=== PATIENT | male | born 1995 | race Caucasian/White ===

== ENCOUNTER 2020-07-21 13:29 | Outpatient (CLI) | payer MEDICAID ==
--- NOTE | 2020-07-21 14:29 | XRAY Report ---
PROCEDURE: Knee 2 View RT INDICATIONS: RT KNEE JOINT PAIN TECHNIQUE: 2 views of the right knee(s) were acquired. COMPARISON: None. FINDINGS: Bones: No fractures or dislocations. No suspicious bony lesions. Soft tissues: No joint effusion. No suspicious soft tissue calcifications. IMPRESSION: No acute fracture. No osseous lesion. If symptoms and/or clinical suspicion for patholog y continue, further assessment with repeat plain films, or advanced imaging (e.g., CT, MRI, or bone s can) is recommended for further assessment. Reviewed by: Dragan Kirby MD on 07/21/2020 2:28 PM PDT Approved by: Dragan Kirby MD on 07/21/2020 2:28 PM PDT Station ID: [id number]
== END 2020-07-21 13:30 | disposition home or self-care (01) ==
LOC: DI 13:29
PROVIDERS: ATTEND Family Medicine
DX: M25.561 Pain in right knee (principal)

== ENCOUNTER 2020-07-28 21:18 | Emergency (ER) | payer MEDICAID ==
[2020-07-28 21:25] VITALS: BP 131/77
[2020-07-28] MEDS ORDERED: predniSONE 20 MG TABLET PO STA (21:45)
--- NOTE | 2020-07-28 21:49 | ED Physician Documentation ---
History of Present Illness - Stated complaint Stated Complaint: RT KNEE PX - Chief complaint Chief Complaint: Ext Problem - Additonal information Additional information: 25-year-old male presents to the emergency department for acute on chronic right knee pain. He reports that he has had this pain for more than 15 years. It intermittently flares. He previously lived in [place] and states that the doctors in the past of told him there was nothing wrong with his knee. This gentleman did see Dr. Healy earlier this week and had a knee x-ray completed that did not show any acute findings. Yesterday he rode his bicycle for many miles and today he finds that the pain is unbearable. He had no falls or trauma, he has no fevers. He does endorse mild swelling of the knee that radiates up the thigh. In the past he has had prepatellar bursitis that has been drained but that does not appear to be the problem today. Review of Systems Constitutional: reports: Reviewed and negative Eyes: reports: Reviewed and negative Ears: reports: Reviewed and negative Throat: reports: Reviewed and negative Cardiac: reports: Reviewed and negative GI: reports: Reviewed and negative : reports: Reviewed and negative Skin: reports: Reviewed and negative Musculoskeletal: reports: Joint pain (Right knee) Neurologic: reports: Reviewed and negative Psychiatric: reports: Reviewed and negative PD PAST MEDICAL HISTORY - Past Medical History Respiratory: Asthma Endocrine/Autoimmune: Other - Past Surgical History Past Surgical History: Yes - Present Medications Home Medications: Ambulatory Orders Medication Instructions Recorded Confirmed ARIPiprazole [Abilify] 1 tab PO DAILY 07/28/20 07/28/20 predniSONE [Prednisone] 40 mg PO DAILY #6 tablet 07/28/20 - Allergies Allergies/Adverse Reactions: Allergies Allergy/AdvReac Type Severity Reaction Status Date / Time aspirin Allergy Anaphylaxis Verified 07/28/20 21:25 NSAIDS (Non-Steroidal Allergy Anaphylaxis Verified 07/28/20 21:25 Anti-Inflamma - Social History Does the pt smoke?: No Smoking Status: Never smoker Does the pt drink ETOH?: Yes Does the pt have substance abuse?: No - Immunizations Immunizations are current?: Yes - POLST Patient has POLST: No PD ED PE EXPANDED - General General: Alert, No acute distress - Extremities Extremities: Right knee (Mild effusion palpable. Normal flexion and extension. No laxity. No erythema. No micromotion tenderness. Mildly antalgic gait) Results - Vitals Vitals: Vital Signs - 24 hr 07/28/20 21:22 Temperature 37.2 C Heart Rate 101 H Respiratory 16 Rate Blood Pressure 131/77 H O2 Saturation 99 Oxygen O2 Source Room air PD MEDICAL DECISION MAKING - ED course Complexity details: reviewed results, re-evaluated patient, d/w patient, d/w family ED course: 25-year-old male presents to the emergency department for evaluation of acute on chronic knee pain that was worsened when he recently rode his bike for a few miles. He had establish care with his primary care provider about 1 week ago and obtained a knee x-ray that was unremarkable. Given the chronicity of his symptoms I have encouraged him to follow-up with physical therapy and in the long-term likely an MRI of the knee. However today on exam he has no laxity of the joint significant swelling or erythema. He has a mildly antalgic gait. This gentleman was given an injection of Dilaudid for pain control. Pt will be given 4 days of prednisone for inflammation and pain control. first dose given today in the ED. Unfortunately he does have a history of anaphylaxis to NSAID medication. He was given crutches for comfort and encouraged to use the [place] wrap for support. Departure - Departure Disposition: 01 Home, Self Care Clinical Impression: Right knee pain Qualifiers: Chronicity: chronic Qualified Code(s): M25.561 - Pain in right knee; G89.29 - Other chronic pain Condition: Stable Record reviewed to determine appropriate education?: Yes Prescriptions: predniSONE [Prednisone] 40 mg PO DAILY #6 tablet Comments: Please continue to follow up with Dr. Healy. In the residential you will benefit from physical therapy and possibly MRI imaging. I have prescribed some prednisone to help with acute pain today. Your first dose was given tonight in the ED. Please begin taking tomorrow evening for the next 3 days. use the crutches when out of bed for the next 3-4 days to rest the knee and wear the compression sleeve when out of bed. IF you develop fevers, have redness or severe swelling of the knee, please return to the ED.
[2020-07-28] MEDS ORDERED: HYDROmorphone 1 MG/ML CARPUJECT IM STA (21:54)
== END 2020-07-28 22:12 | disposition home or self-care (01) ==
LOC: ED 21:18
DX: M25.561 Pain in right knee (principal); G89.29 Other chronic pain
CPT/HCPCS: 96372; 99283; J1170; J7512

== ENCOUNTER 2020-08-31 15:19 | Emergency (ER) | payer MEDICAID ==
[2020-08-31 16:00] LABS: BASOPHILS # (AUTO) 0.1 10^3/uL (0.0-0.1); BASOPHILS % (AUTO) 0.4 %; EOSINOPHILS # (AUTO) 0.2 10^3/uL (0.0-0.7); EOSINOPHILS % (AUTO) 1.3 %; HGB - HEMOGLOBIN 16.5 g/dL (14.0-18.0); LYMPHOCYTES # (AUTO) 2.1 10^3/uL (1.5-3.5); LYMPHOCYTES % (AUTO) 18.3 %; MEAN CORPUSCULAR HEMOGLOBIN 28.8 pg (27.0-31.0); MEAN CORPUSCULAR HGB CONC 34.1 g/dL (32.0-36.0); MEAN CORPUSCULAR VOLUME 84.6 fL (80.0-94.0); MEAN PLATELET VOLUME 11.4 fL (7.4-11.4); MONOCYTES # (AUTO) 1.2 10^3/uL (0.0-1.0); MONOCYTES % (AUTO) 10.1 %; NEUTROPHILS # (AUTO) 8.1 10^3/uL (1.5-6.6); NEUTROPHILS % (AUTO) 69.6 %; PLT - PLATELET COUNT 261 10^3/uL (130-450); RED BLOOD COUNT 5.72 10^6/uL (4.70-6.10); RED CELL DISTRIBUTION WIDTH 13.1 % (12.0-15.0); WHITE BLOOD COUNT 11.7 x10^3/uL (4.8-10.8)
[2020-08-31 16:12] LABS: BILIRUBIN,URINE NEGATIVE (NEGATIVE); GLUCOSE, URINE (UA) NEGATIVE (NEGATIVE); KETONES,URINE (UA) NEGATIVE (NEGATIVE); LEUKOCYTE ESTERASE, URINE NEGATIVE (NEGATIVE); NITRITE,URINE NEGATIVE (NEGATIVE); OCCULT BLOOD,URINE NEGATIVE (NEGATIVE); PH,URINE 7.5 PH (5.0-7.5); PROTEIN,URINE NEGATIVE (NEGATIVE); UROBILINOGEN,URINE 0.2 (NORMAL) E.U./dL (NORMAL)
[2020-08-31 16:13] LABS: ALBUMIN 5.1 g/dL (3.2-5.5); ALBUMIN/GLOBULIN RATIO 1.3 (1.0-2.2); BILIRUBIN,TOTAL 0.6 mg/dL (0.2-1.0); CALCIUM 11.3 mg/dL (8.5-10.3); CREATININE 0.8 mg/dL (0.6-1.2); TOTAL PROTEIN 8.9 g/dL (6.7-8.2)
[2020-08-31 16:17] LABS: CLARITY,URINE CLEAR (CLEAR)
[2020-08-31] MEDS ORDERED: HYDROmorphone 1 MG/ML CARPUJECT IVP STA (16:26)
[2020-08-31] MEDS ORDERED: SODIUM CHLORIDE 0.9% 1,000 ML IV STA (16:26)
[2020-08-31] MEDS ORDERED: ONDANSETRON 4 MG/2 ML VIAL IVP STA (16:26)
--- NOTE | 2020-08-31 16:28 | ED Physician Documentation ---
History of Present Illness - Stated complaint Stated Complaint: ABD PX - Chief complaint Chief Complaint: Abd Pain - History obtained from History obtained from: Patient - History of Present Illness Timing: How many days ago (3) - Additonal information Additional information: 25-year-old male presents to the emergency department with 3 days of epigastric abdominal pain that radiates to his lower abdomen. Patient reports the pain as sharp and constant tearing he denies any fevers or vomiting but reports that he did have black stools this morning. He denies any history of NSAID use or tobacco use. Denies daily alcohol. Denies any pertinent past surgical history. Review of Systems Constitutional: reports: Reviewed and negative Ears: reports: Reviewed and negative Nose: reports: Reviewed and negative Throat: reports: Reviewed and negative Cardiac: reports: Reviewed and negative Respiratory: reports: Reviewed and negative GI: reports: Abdominal Pain, Bloody / black stool. denies: Nausea, Vomiting, Constipation, Diarrhea, Hematemesis : denies: Dysuria, Frequency, Hesitancy Skin: reports: Reviewed and negative Musculoskeletal: reports: Back pain (chronic) Neurologic: reports: Reviewed and negative Psychiatric: reports: Reviewed and negative PD PAST MEDICAL HISTORY - Past Medical History Past Medical History: Yes Cardiovascular: None Respiratory: Asthma Neuro: None Endocrine/Autoimmune: Other GI: None : None HEENT: None Psych: Depression, Anxiety Musculoskeletal: None Derm: None - Past Surgical History Past Surgical History: No - Present Medications Home Medications: Ambulatory Orders Medication Instructions Recorded Confirmed ARIPiprazole [Abilify] 1 tab PO DAILY 07/28/20 07/28/20 predniSONE [Prednisone] 40 mg PO DAILY #6 tablet 07/28/20 Esomeprazole Magnesium [Nexium] 20 mg PO BID #60 capsule. 08/31/20 Hydrocodone/Acetaminophen [[place] 1 each PO BID PRN #7 tablet 08/31/20 5-325 Tablet] - Allergies Allergies/Adverse Reactions: Allergies Allergy/AdvReac Type Severity Reaction Status Date / Time aspirin Allergy Anaphylaxis Verified 08/31/20 15:37 NSAIDS (Non-Steroidal Allergy Anaphylaxis Verified 08/31/20 15:37 Anti-Inflamma - Social History Does the pt smoke?: No Smoking Status: Never smoker Does the pt drink ETOH?: Yes Does the pt have substance abuse?: No - Immunizations Immunizations are current?: Yes - POLST Patient has POLST: No PD ED PE EXPANDED - General General: Alert, Well developed/nourished, In Pain - Neck Neck: Supple w/out meningeal sx, No tenderness - Cardiac Cardiac: Regular Rate, Regular Rhythm, Radial strong equal, Cap refill < 2 sec - Respiratory Respiratory: Clear to ausultation [place]. No: Distress, Labored - Abdomen Abdomen: Normal Bowel sounds, Tender to palpation, Epigastric (Epigastric tenderness to palpation without guarding or rebound. No Jara's or McBurney's elicited. Some tenderness elicited on the and suprapubic area). No: Rebound, Guarding - Derm Derm: Normal color, Warm and dry. No: Rash - Extremities Extremities: Normal - Neuro Neuro: Alert and Oriented X 3, CNII-XII intact - GCS Eye Opening: Spontaneous Motor: Obeys Commands Verbal: Oriented Total: 15 Results - Vitals Vitals: Vital Signs - 24 hr 08/31/20 15:34 Temperature 37.3 C Heart Rate 77 Respiratory 20 Rate Blood Pressure 151/81 H O2 Saturation 97 Oxygen O2 Source Room air - Labs Labs: Laboratory Tests 08/31/20 08/31/20 08/31/20 15:50 15:50 15:50 WBC 11.7 H RBC 5.72 Hgb 16.5 Hct 48.4 MCV 84.6 MCH 28.8 MCHC 34.1 RDW 13.1 Plt Count 261 MPV 11.4 Neut # (Auto) 8.1 H Lymph # (Auto) 2.1 [place] # (Auto) 1.2 H Eos # (Auto) 0.2 Baso # (Auto) 0.1 Absolute Nucleated RBC 0.00 Nucleated RBC % 0.0 Sodium 139 Potassium 3.8 Chloride 97 L Carbon Dioxide 28 Anion Gap 14.0 H BUN 15 Creatinine 0.8 Estimated GFR (MDRD) 116 Glucose 109 H Calcium 11.3 H Total Bilirubin 0.6 AST 24 ALT 37 Alkaline Phosphatase 79 Total Protein 8.9 H Albumin 5.1 Globulin 3.9 Albumin/Globulin Ratio 1.3 Lipase 29 Urine Color YELLOW Urine Clarity CLEAR Urine pH 7.5 Ur Specific [place] 1.025 Urine Protein NEGATIVE Urine Glucose (UA) NEGATIVE Urine Ketones NEGATIVE Urine Occult Blood NEGATIVE Urine Nitrite NEGATIVE Urine Bilirubin NEGATIVE Urine Urobilinogen 0.2 (NORMAL) Ur Leukocyte Esterase NEGATIVE Ur Microscopic Review NOT INDICATED Urine Culture Comments NOT INDICATED - Rads (name of study) CT abd Radiology: Final report received (No evidence of acute abdominal process. Negative CT abdomen and pelvis with contrast) PD MEDICAL DECISION MAKING - ED course Complexity details: reviewed results, re-evaluated patient, d/w patient ED course: 25-year-old male presents to the emergency department with 3 days of acute epigastric abdominal pain that he feels radiates to his lower abdomen. He did report one episode of black stool this a.m. On exam he has no anemia or significant leukocytosis. He has no transaminase elevation and his kidney function is preserved. CT of the abdomen did not reveal any acute abdominal emergency or surgical pathology. My suspicion for this gentleman is that he likely is developing gastritis or peptic ulcer disease. In point he denies NSAID overuse or alcohol abuse. I will start this gentleman on a twice daily prescription of PPI. I have advised close follow-up with his primary care provider. He may benefit from referral to a car restorer to have possible EGD performed. Patient is to return to the emergency department if he has worsening bloody stools or persistent melena. However on my exam he appears very well. Departure - Departure Disposition: Home, Self Care Clinical Impression: Epigastric pain Condition: Stable Record reviewed to determine appropriate education?: Yes Instructions: ED Gastritis, ED Epigastric Pain [facility] Follow-Up: Delroy Solis MD [Primary Care Provider] - Prescriptions: Esomeprazole Magnesium [Nexium] 20 mg PO BID #60 capsule. Hydrocodone/Acetaminophen [[place] 5-325 Tablet] 1 each PO BID PRN #7 tablet PRN Reason: Pain Comments: Jet I hope that you are feeling better soon. Your labs today are all essentially normal. The CT scan of your abdomen did not show any worrisome. I suspect that the pain in your upper abdomen is likely gastritis or even peptic ulcer disease. This can cause ulcers to form in the stomach can be very uncomfortable. I would like you to start taking the Nexium twice daily as prescribed. Over next 3 to 4 days please avoid any heavy or fatty foods. I recommend a clear liquid diet until your pain is improving. I have prescribed a very limited amount of hydrocodone to help with this. It is important that you continue to follow-up with your primary care doctor. If you have any worsening black stools, you have a racing heart, feel weak or dizzy or suddenly severe or different abdominal pain please return to the emergency department. Your primary doctor may want to make a referral for you to a car restorer where an EGD can be performed to determine the cause of your upper abdominal pain.
[2020-08-31] MEDS ORDERED: IOVERSOL 320 100 ML VIAL IVP ONE ×2 (16:36→16:54)
--- NOTE | 2020-08-31 17:00 | CT Report ---
PROCEDURE: Abdomen/Pelvis W INDICATIONS: epigastric abdominal pain radiating to lower abd CONTRAST: IV CONTRAST: Optiray 320 ml: 100 PO CONTRAST: *NO PO CONTRAST TECHNIQUE: After the administration of intravenous contrast, 5 mm thick sections acquired from the diaphragms to the symphysis. 5 mm thick coronal and sagittal reformats were acquired. For radiation dose reducti on, the following was used: automated exposure control, adjustment of mA and/or kV according to spenser ent size. COMPARISON: None. FINDINGS: Image quality: Excellent. ABDOMEN: Lung bases: Lung bases are clear. Heart size is normal. Solid organs: Liver and spleen are normal in size and enhancement. Gallbladder is unremarkable. Bi liary system is non dilated. Pancreas enhances normally. No adrenal nodules. Kidneys demonstrate n ormal size and enhancement, without hydronephrosis. Peritoneum and bowel: Bowel loops demonstrate normal wall thickness and caliber. No free fluid or a ir. Nodes and vessels: No retroperitoneal or mesenteric adenopathy by size criteria. Aorta and inferior vena cava are normal in size. Miscellaneous: No ventral hernias. PELVIS: Genitourinary: Bladder wall thickness is normal. Miscellaneous: No inguinal hernias or adenopathy. Bones: No suspicious bony lesions. No vertebral body compression fractures. IMPRESSION: No evidence of acute abdominal process. Negative CT abdomen and pelvis with contrast. Reviewed by: Artur Head MD on 08/31/2020 4:59 PM PST Approved by: Artur Head MD on 08/31/2020 4:59 PM PST Station ID: [id number]
[2020-08-31 17:56] VITALS: BP 121/87
== END 2020-08-31 17:56 | disposition home or self-care (01) ==
LOC: ED 15:19
DX: R10.13 Epigastric pain (principal)
CPT/HCPCS: 36415; 74177; 80053; 81003; 83690; 85025; 96374; 99284; J1170; Q9967; 81001; 87086

== ENCOUNTER 2020-10-24 06:49 | Emergency (ER) | payer MEDICAID ==
--- NOTE | 2020-10-24 07:41 | ED Physician Documentation ---
PD HPI LOWER EXT INJURY - Stated complaint Stated Complaint: LT KNEE INJ - Chief complaint Chief Complaint: Trauma Ext - History obtained from History obtained from: Patient - History of Present Illness PD HPI LOW EXT INJURY LOCATION: Left, Knee Type of injury: Twist Pain level max: 9 Pain level now: 9 Improved by: Rest, Immobilization Worsened by: Moving, Palpating Associated symptoms: Swelling. No: Weakness, Numbness, Tingling, Discolored Contributing factors: No: Anticoagulated - Additional information Additional information: fall, twisted L knee yesterday. Worse with walking and better with rest. Review of Systems Musculoskeletal: denies: Neck pain, Back pain Neurologic: denies: Headache PD PAST MEDICAL HISTORY - Past Medical History Cardiovascular: None Respiratory: Asthma Neuro: None Endocrine/Autoimmune: Other GI: None : None HEENT: None Psych: Depression, Anxiety Musculoskeletal: None Derm: None - Past Surgical History Past Surgical History: Yes - Allergies Allergies/Adverse Reactions: Allergies Allergy/AdvReac Type Severity Reaction Status Date / Time aspirin Allergy Anaphylaxis Verified 10/24/20 07:02 NSAIDS (Non-Steroidal Allergy Anaphylaxis Verified 10/24/20 07:02 Anti-Inflamma - Social History Does the pt smoke?: No Smoking Status: Never smoker Does the pt drink ETOH?: Yes Does the pt have substance abuse?: No - Immunizations Immunizations are current?: Yes - POLST Patient has POLST: No PD ED PE NORMAL - Vitals Vital signs reviewed: Yes - General General: Alert and oriented X 3, No acute distress - HEENT HEENT: Moist mucous membranes - Neck Neck: Supple, no meningeal sign - Derm Derm: Warm and dry - Extremities Extremities: Other (Mild visible swelling. Mild tenderness on the lateral aspect of the knee. Limited range of motion in all directions secondary to pain. Unable to tolerate ligamentous and meniscus testing. Neurovascularly intact) - Neuro Neuro: Alert and oriented X 3 - Psych Psych: Normal mood, Normal affect Results - Vitals Vitals: Vital Signs - 24 hr 10/24/20 10/24/20 06:50 08:11 Temperature 36.7 C Heart Rate 124 H 97 Respiratory 16 18 Rate Blood Pressure 139/92 H 128/89 H O2 Saturation 100 99 Oxygen O2 Source Room air - Rads (name of study) Left knee x-ray Radiology: Prelim report reviewed, EMP read contemporaneously, See rad report (no acute bony abnormality. joint effusion) PD MEDICAL DECISION MAKING - ED course Complexity details: reviewed results, re-evaluated patient, considered differential, d/w patient ED course: No acute findings on x-ray of the knee. Appears to have a knee sprain. Patient has is on crutches with him. We will place him in a articulating knee brace, restricted motion between 10 and 50 degrees. We will have him follow-up with his doctor for further care. Patient counseled regarding signs and symptoms for which I believe and urgent re-evaluation would be necessary. Patient with good understanding of and agreement to plan and is comfortable going home at this time This document was made in part using voice recognition software. While efforts are made to proofread this document, sound alike and grammatical errors may occur. Departure - Departure Disposition: 01 Home, Self Care Clinical Impression: Left knee sprain Qualifiers: Encounter type: initial encounter Involved ligament of knee: unspecified ligam ent Qualified Code(s): S83.92XA - Sprain of unspecified site of left knee, initial encounter Condition: Good Instructions: ED Sprain Knee Follow-Up: Delroy Solis MD [Primary Care Provider] - Within 1 week Comments: Continue to wear the knee brace for comfort. Use your crutches as needed. Follow-up with your doctor in 1 week for repeat evaluation of your knee when the swelling has decreased. Return if you worsen Forms: Activity restrictions Discharge Date/Time: 10/24/20 08:12
[2020-10-24 08:12] VITALS: BP 128/89
--- NOTE | 2020-10-24 08:19 | XRAY Report ---
PROCEDURE: Knee 3 View LT INDICATIONS: injury/fall from hiking TECHNIQUE: 3 views of the left knee(s) were acquired. COMPARISON: None. FINDINGS: Bones: No fractures or dislocations. No suspicious bony lesions. Soft tissues: Small to moderate suprapatellar joint effusion. No suspicious soft tissue calcificatio ns. IMPRESSION: Small to moderate suprapatellar joint effusion. No osseous injury found. In the setting of trauma effusion may reflect presence of internal derangement and depending on the clinical status follow-up by elective MRI may become necessary. Reviewed by: Austin Herring MD on 10/24/2020 8:17 AM PST Approved by: Austin Herring MD on 10/24/2020 8:17 AM PST Station ID: [id number]
== END 2020-10-24 08:12 | disposition home or self-care (01) ==
LOC: ED 06:49
DX: S83.92XA Sprain of unspecified site of left knee, initial encounter (principal); W18.30XA Fall on same level, unspecified, initial encounter; X50.1XXA Overexertion from prolonged static or awkward postures, initial encounter; Y93.01 Activity, walking, marching and hiking
CPT/HCPCS: 99283; 99284

== ENCOUNTER 2020-11-08 07:47 | Outpatient (CLI) | payer MEDICAID ==
--- NOTE | 2020-11-08 10:58 | MRI Report ---
PROCEDURE: Knee LT W/O INDICATIONS: KNEE JOINT PAIN, L TECHNIQUE: Noncontrast sagittal PD fast spin echo and T2 fast spin echo with fat saturation, sagittal 3-D spoile d GE with fat saturation; coronal T1 spin echo and PD fast spin echo with fat saturation, and axial P D fast spin echo with fat saturation through the knee. COMPARISON: Knee radiographs 10/24/2020 FINDINGS: Image quality: Excellent. Menisci: The medial meniscus is intact. A deep radial oriented tear is seen in the posterior horn of the lateral meniscus, measuring 7 mm in width without definite disruption of the peripheral-most fib ers. There is no significant meniscal extrusion. Cruciate ligaments: There is complete tearing of the midportion of the anterior cruciate ligament. T he posterior cruciate ligament is intact. Medial structures: Mild edema is seen superficial to the medial collateral ligament, compatible with a low-grade proximal sprain. The semimembranosus tendon insertions appear intact. Visualized porti ons of the pes anserinus tendons appear normal. Lateral structures: The lateral collateral ligament, long and short heads of the biceps femoris tend on appear intact. The popliteus tendon appears intact. Iliotibial band appears normal. No signs of posterolateral corner injury are identified. Anterior structures: The quadriceps and patellar tendons appear intact. Patellar alignment is goran l. No femoral trochlear dysplasia or ventral trochlear prominence. No edema in the infrapatellar fa t pad. Bones and cartilage: Impaction trabecular bone injuries are seen in the anterior weightbearing portio n of the lateral femoral condyle and the far posterior portion of the lateral tibial plateau as well as the posterior portion of the medial tibial plateau, compatible with a pivot shift injury mechanism . The cartilage of the medial and lateral femorotibial compartments, as well as the patellofemoral co mpartment, appears normal in thickness. Joint space and soft tissues: There is a moderate to large joint effusion. A small medial popliteal cyst is present. IMPRESSION: 1. Complete tearing of the mid substance of the anterior cruciate ligament. 2. Low-grade sprain of the proximal medial collateral ligament. 3. Deep radial oriented tear in the posterior horn of the lateral meniscus without meniscal extrusio n. 4. Impaction trabecular bone injuries in the lateral femoral condyle and the posterior portions of t he medial and lateral tibial plateau, compatible with a pivot shift injury mechanism. 5. Moderate to large joint effusion. Small medial popliteal cyst. Reviewed by: Charbel Floyd MD on 11/08/2020 10:56 AM PST Approved by: Charbel Floyd MD on 11/08/2020 10:56 AM PST Station ID: [id number]
== END 2020-11-08 07:48 | disposition home or self-care (01) ==
LOC: DI 07:47
PROVIDERS: ATTEND Family Medicine
DX: S83.512A Sprain of anterior cruciate ligament of left knee, initial encounter (principal); S83.412A Sprain of medial collateral ligament of left knee, initial encounter; S83.282A Other tear of lateral meniscus, current injury, left knee, initial encounter; R93.6 Abnormal findings on diagnostic imaging of limbs

== ENCOUNTER 2021-01-02 16:36 | Outpatient (CLI) | payer MEDICAID | END 2021-01-02 16:37 | disposition home or self-care (01) | LOC: COV 16:36 | PROVIDERS: ATTEND Orthopaedic Surgery | DX: Z01.812 Encounter for preprocedural laboratory examination (principal); S83.282A Other tear of lateral meniscus, current injury, left knee, initial encounter; S83.512A Sprain of anterior cruciate ligament of left knee, initial encounter; Z20.822 Contact with and (suspected) exposure to COVID-19 ==

== ENCOUNTER 2021-01-04 10:51 | Day surgery (SDC) | payer MEDICAID ==
[2021-01-04] MEDS ORDERED: ACETAMINOPHEN 1,000 MG/100 ML 100 ML IV ONE ×3 (11:11→21:51)
[2021-01-04] MEDS ORDERED: ceFAZolin 2 GM/50 ML 2 GM/50 ML BAG IV ONE (11:11)
[2021-01-04] MEDS ORDERED: LACTATED RINGERS 1,000 ML IV ONE (11:21)
[2021-01-04] MEDS ORDERED: LIDOCAINE-MPF 2% 5 ML VIAL ONE (11:27)
[2021-01-04] MEDS ORDERED: EPINEPHrine 1 MG/ML AMP ONE ×2 (11:27→11:32)
[2021-01-04] MEDS ORDERED: MIDAZOLAM 2 MG/2 ML VIAL ONE (11:27)
[2021-01-04] MEDS ORDERED: PROPOFOL 200 MG/20 ML VIAL IVP ONE (11:27)
[2021-01-04] MEDS ORDERED: ROPIVACAINE 0.5% PF 20 ML AMPULE ONE (11:27)
[2021-01-04] MEDS ORDERED: fentaNYL 100 MCG/2 ML VIAL ONE ×2 (11:27→15:35)
[2021-01-04] MEDS ORDERED: DEXAMETHASONE 10 MG/ML VIAL ONE (11:27)
[2021-01-04] MEDS ORDERED: KETOROLAC 30 MG/ML VIAL ONE (11:28)
[2021-01-04] MEDS ORDERED: ONDANSETRON 4 MG/2 ML VIAL ONE (11:28)
[2021-01-04] MEDS ORDERED: fentaNYL 100 MCG/2 ML VIAL IVP PRN (11:31)
[2021-01-04] MEDS ORDERED: ONDANSETRON 4 MG/2 ML VIAL IVP PRN (11:31)
[2021-01-04] MEDS ORDERED: MORPHINE 2 MG/ML CARPUJECT IVP PRN (11:31)
[2021-01-04] MEDS ORDERED: ePHEDrine 50 MG/ML VIAL IVP PRN (11:31)
[2021-01-04] MEDS ORDERED: ATROPINE ABBOJECT 1 MG/10 ML SYRINGE IVP PRN (11:31)
[2021-01-04] MEDS ORDERED: NALOXONE 0.4 MG/ML VIAL IVP PRN (11:31)
[2021-01-04] MEDS ORDERED: HYDROmorphone 0.5 MG/0.5 ML SYRINGE IVP PRN ×2 (11:31→12:20)
[2021-01-04] MEDS ORDERED: METOCLOPRAMIDE 10 MG/2 ML VIAL IVP PRN (11:31)
--- NOTE | 2021-01-04 11:31 | ANESTHESIA ---
Pre-Anesthesia VS, & Labs - Diagnosis Left knee torn ACL and lateral meniscus - Procedure left knee arthroscopy with ACL repair, Quadricep tendon and meniscus repair Vital Signs: Temp Pulse Resp BP Pulse Ox 37.7 C 74 16 134/85 H 97 01/04/21 11:22 01/04/21 11:22 01/04/21 11:22 01/04/21 11:22 01/04/21 11:22 Height: 5 ft 10 in Weight (kg): 109 kg Body Mass Index: 34.4 BMI Classification: Obese - NPO >8 hours - Lab Results Current Lab Results: Laboratory Tests 01/04/21 11:24: POC Whole Bld Glucose 95 Lab results reviewed: Yes Home Medications and Allergies Home Medications: Ambulatory Orders No Known Home Medications 12/27/20 No Known Home Medications 12/27/20 Allergies/Adverse Reactions: Allergies Allergy/AdvReac Type Severity Reaction Status Date / Time NSAIDS (Non-Steroidal Allergy Anaphylaxis Verified 10/24/20 07:02 Anti-Inflamma Anes History & Medical History - Anesthetic History Anesthesia Complications: reports: No previous complications Family history of Anesthesia Complications: Denies Family history of Malignant Hyperthermia: Denies - Medical History Cardiovascular: reports: None Pulmonary: reports: Asthma Gastrointestinal: reports: GERD Urinary: reports: None Neuro: reports: None Musculoskeletal: reports: Chronic back pain Endocrine/Autoimmune: reports: None Blood Disorders: reports: None Skin: reports: None Smoking Status: Current some day smoker (vape marijuana) Psychosocial: reports: Anxiety, Cannabis - Surgical History Orthopedic: reports: Arthroscopic surgery Exam General: Alert, Oriented x3, Cooperative, No acute distress Dental: WNL Mouth Openin Fingerbreadth Neck Mobility: Normal Mallampati classification: II Respiratory: Lungs clear, Normal breath sounds, No respiratory distress, No accessory muscle use Cardiovascular: Regular rate, Normal S1, Normal S2, No murmurs Plan Anesthesia Type: General, Adductor Block Regional Block: Per Surgeon's request for Post Op pain control Consent for Procedure(s) Verified and Reviewed: Yes Code Status: Attempt Resuscitation ASA classification: 2-Mild systemic disease Is this case an emergency?: No
[2021-01-04] MEDS ORDERED: LIDOCAINE 2%-EPI 1:100000 20 ML MDV ONE (11:32)
[2021-01-04] MEDS ORDERED: BUPIVACAINE 0.5% PF 30 ML VIAL ONE (11:32)
[2021-01-04] MEDS ORDERED: LACTATED RINGERS 1,000 ML IV SCH (12:00)
[2021-01-04] MEDS ORDERED: HYDROcod/ACETAM 5/325 MG TABLET PO PRN (12:09)
[2021-01-04] MEDS ORDERED: EPINEPHrine 1 MG/ML AMP IR ONE (13:25)
[2021-01-04] MEDS ORDERED: HYDROmorphone 1 MG/ML CARPUJECT ONE ×2 (14:06→21:32)
[2021-01-04] MEDS ORDERED: KETAMINE 500 MG/10 ML VIAL ONE (17:15)
[2021-01-04] MEDS ORDERED: ceFAZolin 1 GM VIAL ONE (19:41)
--- NOTE | 2021-01-04 20:08 | OPERATIVE REPORT ---
Operative Report - General Procedure Date: 01/04/21 Planned Procedure: Anterior cruciate ligament reconstruction left knee with meniscal surgery Pre-Op Diagnosis: Anterior cruciate ligament rupture and tear of lateral meniscus left knee Procedure Performed: Anterior cruciate ligament reconstruction left knee with autogenous quadriceps tendon graft, partial lateral meniscectomy Post Op Diagnosis: Same as preoperative diagnosis - Procedure Note Primary Surgeon: Julio Swenson MD Secondary Surgeon: Jaya ALVAREZ Anesthesia Provider: Kaveh Ahumada CRNA Anesthesia Technique: General LMA, Regional block Estimated Blood Loss (mL): 100 Indications: 25-year-old gentleman with injury to left knee with pain and some instability. He has been to physical therapy. He did have a positive Matthias and lateral joint line tenderness, good motion To left knee. His MRI scan suggested a complete rupture anterior cruciate ligament left knee and a small radial tear of the posterior horn lateral meniscus left knee Findings: Complete rupture femoral attachment anterior cruciate ligament left knee, small 50% radial tear posterior horn lateral meniscus left knee. Articular surfaces of tibiofemoral patellofemoral joint intact. Medial meniscus intact. Posterior cruciate ligament intact. No loose bodies were present, medial lateral gutters were normal. There was a negative pivot shift test, positive Matthias, good stability with varus and valgus stress, negative external rotation test, negative recurvatum test Complications: prolonged surgical time - Other Other Information/Narrative: Patient was brought to the operating room, placed in the supine position. After anesthesia had been achieved, his right leg was placed in a well leg champion. The left knee was examined for abnormal laxity and the findings have been noted above. The left lower extremity was prepped and draped in a sterile manner in the usual fashion. A lateral thigh post was applied to the operating room table. The patient was positioned so that the end of the table could be flexed to 90 degrees. A timeout procedure was performed by the entire operating room team and all were in agreement. Diagnostic arthroscopy was initiated using a superior medial portal for the outflow. Anterolateral portal was made for the diagnostic arthroscope, four mm 30 oblique Shanon diagnostic arthroscope in conjunction with Folloyu video camera. Inflow was brought to the arthroscope using the Folloyu arthroscopic pump. Complete diagnostic arthroscopy was performed with the findings noted above. An anteromedial portal was established for instrument portal. The radial tear was not felt to be repairable as it was quite small and so it was slightly saucerized trim the posterior horn with a basket forcep. This led to a stable meniscal rim of tissue with minimal meniscectomy. The femoral attachment was ruptu to the anterior cruciate ligament. The anterior cruciate ligament remnant was removed with radiofrequency probe and the Shanon full-radius kayden. The lateral wall was exposed, the superior notch and the [id number] position. The graft was obtained from the quadriceps tendon using the quadriceps pro tendon harvester. The knee was flexed to 90 degrees. A 1-1/2 cm incision was made just superior to the patella. The fat overlying the tendon was excised. A 9 mm wide 1-1/2 cm quadriceps tendon graft was harvested with a 15 blade scalpel. An Allis clamp was used to grasp the end of the tendon. A FiberWire suture was started through the end of the tendon using a loop. The 9 mm quadriceps tendon pro harvester was then introduced and pushed proximally and slightly posteriorly with the knee flexed to 90 degrees the graft was brought out through the amputation window and harvested with the plunger. One end of the graft was relatively narrow measuring 6 mm and the other hand approximately 7 to 8 mm. The length of the graft was approximately 75 mm. The graft was prepared on the back table using the fiber tag RT for the femoral side and the fiber tag ABS for the tibial side using the graft positioner. This was done by our physician social worker assistant. During this period time the anterior cruciate ligament was excised arthroscopically and the lateral wall had been prepared. The arthroscope was introduced to the anteromedial portal and the Arthrex flip c utter and guide were inserted. The guide was inserted to the anterolateral portal and the targeting guide was positioned approximately 8 to 9 mm from the posterior arterial cartilage. The flip cutter was introduced through a lateral incision, introduced into the joint. The width of the condyle was measured approximately 39 mm. A 10 mm diameter tunnel was made, 25 mm long. There is no evidence of any abnormality to the femoral socket. A fiber tag suture was inserted through the guide and brought out through the anterolateral portal. This was secured as a luggage tag outside the joint for subsequent passage of the graft. The arthroscope was then switched through the anterolateral portal. The tibial guide was then inserted through the anteromedial portal and positioned so that it was flush with the tibial spines just medial to the lateral tibial spine. The guide was relatively parallel to the joint and positioned about 25 mm medial to the tibial tubercle. The flip cutter was then introduced through the cannula, into the joint and then retrograde to leave a socket of about 25 mm. The goal was to try a all inside technique. Both of the fiber tag sutures were brought out the anteromedial portal. The suture was taken into the femoral tunnel and was advanced. The advancement of the graft stopped and it was found that the tibial graft was entangled with suture and soft tissue into the fat pad and synovium making it impossible to pass the graft fully. For this reason the graft had to be removed. The femoral side of the graft had to be redone with additional fiber tag since the first passage of graft to the graft was tensioned on the femoral side. The initial tibial tunnel was a 7 mm. The initial partial tibial socket was converted to a complete socket and had to be changed from 7 mm to 10 mm to allow for passage of the graft from the tibial side into the femoral side. This required passage of new fiber tag suture as well. And the fiber tag suture had to be threaded from the femoral side through the 3.5 mm windThe graft was then passed from the tibial side, across the joint and into the femoral socket the button was flipped by pulling on the tibial side and the graft was then advanced into the socket using the white tensioning sutures on the femoral side. The same was then to the tibial side over ABSButton. The tensioning was done with the knee in full extension after cycling the knee. In addition to the button, a 4.7 5 swivel lock was used to anchor the sutures into the tibial metaphysis with excellent purchase. He had full range of motion, good stability with Matthias test. The procedure was prolonged since the graft had to be partially redone, suture repassed through the tunnels for passage, graft reprepared with additional fiber tag, Tibial tunnel expanded to a complete socket.The tourniquet time was approximately 82 minutes. He tolerated the prolonged procedure well. His skin was closed with 4-0 nylon to the tendon harvesting site. The other incisions were closed with 2-0 Vicryl and dunia. The arthroscopic incision sites were closed with stainless steel dunia. Xeroform, sterile gauze dressing, long-leg hinged knee brace locked in extension but allowing for 0 to 90 degrees of flexion was applied. He received 2 doses of Ancef 2 g the beginning and 2 g for redosing. There is a family history of positive factor V Leiden. The patient has no history of DVT or pulmonary embolus but it is present in his mother. I discussed this on the phone with her and the plan is to place him on Coumadin for deep venous thrombosis prophylaxis. The procedure was discussed with his mother including the prolonged operative time.A physician social worker assistant was utilized and felt to be medically necessary to help with the entire process of the procedure including preparation ofSuturing graft, passage of graft, help in preparation of tunnels, closure.
[2021-01-04] MEDS ORDERED: LIDOCAINE 2% URO-JET 5 ML SYRINGE UR ONE (20:24)
[2021-01-04] MEDS ORDERED: LACTATED RINGERS 800 ML IV ONE (21:14)
--- NOTE | 2021-01-04 21:37 | ANESTHESIA POST OP EVALUATION ---
Anesthesia Post Eval - Post Anesthesia Eval Vitals: Last Vital Signs Temp 37.1 C 01/04/21 21:30 Pulse 121 H 01/04/21 21:30 Resp 17 01/04/21 21:30 BP 147/75 H 01/04/21 21:30 Pulse Ox 100 01/04/21 21:30 CV Function Including HR & BP: positive: Stable Pain Control: positive: Satisfactory Nausea & Vomiting: positive: Negative Mental Status: positive: Baseline Respiratory Status: Airway Patent Hydration Status: Satisfactory Anesthesia Complications: positive: None
--- NOTE | 2021-01-04 22:11 | CONSULTATION NOTE ---
Referring Provider Name of Referring Provider:: Dr. Julio Swenson Consult Date: 01/04/21 Chief Complaint - Chief Complaint Chief Complaint: Left hip pain History of Present Illness - Admitted From Admitted From:: Home - History Obtained From Records Reviewed: Yes History obtained from: Patient, Orthopedic Surgeon, EMR - History of Present Illness HPI Comment/Other: This is a 25-year-old male with a past medical history significant for bipolar disorder who presented today for an elective ACL reconstruction and partial lateral meniscectomy of the left knee. He tore his ACL about 2 months ago while hiking. This ended up being a prolonged procedure that took a little over 6 hours. Postoperatively while in the PACU, the patient was bladder scanned for about 400 mL of urine. He was catheterized and it was noted that after difficult placement, there was gross hematuria. A Villeda catheter was placed but per nursing, the balloon could not be inflated. He continued to have gross hematuria which has since cleared up since being irrigated with over 500 mL of saline. Given the hematuria, Medicine was consulted. Patient is seen postoperatively and history is limited as he still quite lethargic as he just received Dilaudid. He tells me he has not had difficulty urinating or any hematuria prior to admission. He reports episode of hematuria that lasted about 2 days which occurred 6 months ago after he was kicked in the testicles while wrestling. He denies any bleeding tendencies. He currently reports no chest pain or dyspnea. His left lower extremity still feels numb. He does complain of left hip pain which is chronic for him. He does feel little nauseous right now but denies any vomiting. History - Past Medical History Cardiovascular: reports: None Respiratory: reports: Asthma Neuro: reports: None Endocrine/Autoimmune: reports: None GI: reports: GERD : reports: None HEENT: reports: Chronic vision loss Psych: reports: Depression, Anxiety Musculoskeletal: reports: Chronic back pain Derm: reports: None MRSA Hx?: No - Past Surgical History Ortho: reports: ACL reconstruction, Arthroscopic surgery - Family & Social History Family History Comment/Other: His mother has a history of factor V Leiden and subsequently DVT/PE Living arrangement: At home Living Situation: With family Social History Notes: He lives with his mother who is a respiratory therapist here at the hospital. He reports smoking marijuana every other day. Reports rare alcohol use. - POLST Patient has POLST: No Meds/Allgy - Home Medications Home Medications: Ambulatory Orders Medication Instructions Recorded Confirmed Warfarin [Coumadin] 5 mg PO DAILY #30 tablet 01/04/21 oxyCODONE [Roxicodone] 5 mg PO Q4-6H #20 tablet 01/04/21 - Allergies Allergies/Adverse Reactions: Allergies Allergy/AdvReac Type Severity Reaction Status Date / Time NSAIDS (Non-Steroidal Allergy Anaphylaxis Verified 10/24/20 07:02 Anti-Inflamma Review of Systems - Constitutional Constitutional: reports: Fatigue - Cardiovascular Cariovascular: denies: Chest pain, Exertional dyspnea, Decr. exercise tolerance - Respiratory Respiratory: denies: SOB at rest, SOB with exertion - Gastrointestinal Gastrointestinal: reports: Nausea. denies: Abdominal pain, Vomiting - Genitourinary Genitourinary: denies: Urgency, Hematuria - Musculoskeletal Musculoskeletal: reports: Stiffness, Joint pain - Neurological Neurological: reports: Numbness. denies: General weakness, Focal weakness - Hematologic/Lymphatic Hematologic/Lymphatic: denies: Anemia, Blood clots, Bleeding tendencies - All Other Systems All Other Systems: reports: Other (Review of systems is limited as the patient is still quite lethargic postoperatively.) Exam - Vital Signs Reviewed Vital Signs: Yes Vital Signs: Vital Signs x48h Temp Pulse Resp BP Pulse Ox 01/04/21 21:55 37.1 C 117 H 17 140/78 H 99 01/04/21 21:50 37.1 C 110 H 17 140/78 H 99 01/04/21 21:45 37.1 C 110 H 17 141/81 H 99 01/04/21 21:40 37.1 C 123 H 13 143/70 H 99 01/04/21 21:35 37.1 C 120 H 14 139/84 H 99 01/04/21 21:30 37.1 C 121 H 17 147/75 H 100 01/04/21 21:25 36.7 C 110 H 17 132/61 H 97 01/04/21 21:20 36.7 C 110 H 17 132/61 H 97 01/04/21 21:15 36.7 C 137 H 17 97/84 H 97 01/04/21 21:07 36.7 C 147 H 16 141/89 H 97 - Physical Exam General Appearance: positive: No acute distress, Lethargic (He will wake up to answer questions but will keep his eyes closed and quickly fall back to sleep.) Eyes Bilateral: positive: Normal inspection, Conjunctivae nml ENT: positive: ENT inspection nml Neck: positive: Nml inspection Respiratory: positive: No respiratory distress. negative: Wheezes, Rales Cardiovascular: positive: Tachycardia. negative: Irregularly irregular, Bradycardia, Systolic murmur Abdomen: positive: Non-tender, No distention. negative: Tenderness, Guarding, Rebound Skin: positive: Warm, Dry Extremities: positive: No pedal edema, Other (Left knee brace and dressing in place.) Neurologic/Psychiatric: positive: Other (Diminished sensation in the left lower extremity. He is able to move his toes.). negative: Disoriented to person, Disoriented to place Conclusion/Plan - Diagnosis Diagnosis: 1) Hematuria. 2) Sinus tachycardia. 3) Bipolar disorder. 4) Status post left ACL reconstruction - Plan Plan: The etiology of his gross hematuria is not clear at the moment. The Villeda catheter is now draining clear urine. We will check a urinalysis and consider obtaining a bladder and renal ultrasound. Check a CBC this evening and in the morning. Check a basic metabolic panel as well as an INR. Plan for a voiding trial in the morning. If he is able to void on his own then he can likely be discharged home and can follow-up with his primary care provider and a urologist in the future. His tachycardia is likely pain related. We will place him on oxycodone and Tylenol as needed. We will continue his home medications for his bipolar disorder. We will defer his postop management to orthopedic surgery. Patient still has some effects of the spinal block. Pain management as mentioned above. Thank you for this consult. We will continue to follow.
[2021-01-04 22:38] LABS: BASOPHILS % (AUTO) 0.2 %; EOSINOPHILS % (AUTO) 0.1 %; HGB - HEMOGLOBIN 13.7 g/dL (14.0-18.0); LYMPHOCYTES # (AUTO) 0.9 10^3/uL (1.5-3.5); LYMPHOCYTES % (AUTO) 5.1 %; MEAN CORPUSCULAR HEMOGLOBIN 28.9 pg (27.0-31.0); MEAN CORPUSCULAR HGB CONC 33.4 g/dL (32.0-36.0); MEAN CORPUSCULAR VOLUME 86.5 fL (80.0-94.0); MEAN PLATELET VOLUME 11.1 fL (7.4-11.4); MONOCYTES # (AUTO) 0.9 10^3/uL (0.0-1.0); MONOCYTES % (AUTO) 4.7 %; NEUTROPHILS # (AUTO) 16.5 10^3/uL (1.5-6.6); NEUTROPHILS % (AUTO) 89.1 %; PLT - PLATELET COUNT 262 10^3/uL (130-450); RED BLOOD COUNT 4.74 10^6/uL (4.70-6.10); RED CELL DISTRIBUTION WIDTH 13.2 % (12.0-15.0); WHITE BLOOD COUNT 18.5 x10^3/uL (4.8-10.8)
[2021-01-04 22:45] LABS: INR 1.2 (0.8-1.2); PT - PROTHROMBIN TIME 13.4 secs (9.9-12.6)
[2021-01-04 22:48] LABS: CALCIUM 8.9 mg/dL (8.5-10.3); CREATININE 0.9 mg/dL (0.6-1.2)
[2021-01-04] MEDS: ONDANSETRON ODT 4 MG TABLET TL PRN (23:55)
[2021-01-05] MEDS: ACETAMINOPHEN 325 MG TABLET PO PRN ×2 (00:28→06:52)
[2021-01-05] MEDS: oxyCODONE 5 MG TABLET PO PRN ×2 (00:29→08:09)
[2021-01-05 05:03] LABS: BASOPHILS % (AUTO) 0.1 %; EOSINOPHILS % (AUTO) 0.1 %; HCT - HEMATOCRIT 36.6 % (42.0-52.0); HGB - HEMOGLOBIN 12.3 g/dL (14.0-18.0); LYMPHOCYTES % (AUTO) 9.2 %; MEAN CORPUSCULAR HEMOGLOBIN 28.7 pg (27.0-31.0); MEAN CORPUSCULAR HGB CONC 33.6 g/dL (32.0-36.0); MEAN CORPUSCULAR VOLUME 85.3 fL (80.0-94.0); MEAN PLATELET VOLUME 10.8 fL (7.4-11.4); MONOCYTES % (AUTO) 11.5 %; NEUTROPHILS % (AUTO) 78.4 %; PLT - PLATELET COUNT 226 10^3/uL (130-450); RED BLOOD COUNT 4.29 10^6/uL (4.70-6.10); RED CELL DISTRIBUTION WIDTH 13.2 % (12.0-15.0); WHITE BLOOD COUNT 13.4 x10^3/uL (4.8-10.8)
[2021-01-05 05:06] LABS: ABNORMAL LYMPHS % (MANUAL) 0 %
[2021-01-05 06:33] LABS: BAND NEUTROPHILS % (MANUAL) 2 %; DIFFERENTIAL COMMENT MANUAL DIFFERENTIAL; LYMPHOCYTES # (MANUAL) 1.2 10^3/uL (1.5-3.5); LYMPHOCYTES % (MANUAL) 9 %; MONOCYTES # (MANUAL) 0.9 10^3/uL (0.0-1.0); NEUTROPHILS # (MANUAL) 11.3 10^3/uL (1.5-6.6); PLATELET ESTIMATE, MANUAL NORMAL (130-450,000) (NORMAL); RBC MORPHOLOGY (MULTIPLE) NORMAL APPEARANCE (NORMAL)
[2021-01-05] MEDS: ONDANSETRON ODT 4 MG TABLET TL PRN (08:09)
--- NOTE | 2021-01-05 08:19 | PROVIDER PROGRESS NOTE ---
Subjective - General Procedure Date: 01/04/21 Post Op Days: 1 Procedure Performed: Left ACL reconstruction with quad tendon graft and lateral meniscus repair - Review of Systems Wound/Incisions: positive: Dressing dry and intact General: negative: Fever, Chills Pulmonary: negative: Shortness of breath Cardiovascular: negative: Chest pain Genitourinary: positive: Hematuria Musculoskeletal: positive: Joint pain, Joint swelling All Other Systems: positive: Other (Review of systems is limited as the patient is still quite lethargic postoperatively.) - Other Other Information/Narrative: Patient is a 25-year-old male who underwent left knee ACL reconstruction with quad tendon graft and left lateral meniscus repair on 01/04/[address] Julio Lopez [facility]. After operation while still in OR patient had a straight urinary catheter administered and was found to have jonathan blood in the urine. Upon awakening from anesthesia patient was reporting left groin pain, not complaining of left knee pain.. Patient was admitted for observation by Dr Julio Swenson with comanagement by hospitalist to monitor hematuria. Objective - Patient Data Vital Signs: Vital Signs x48h Temp Pulse Pulse Resp BP BP Pulse Ox 01/05/21 05:17 36.7 C 100 18 121/68 97 01/05/21 05:00 36.7 C 99 18 119/69 96 01/05/21 04:17 36.6 C 104 H 18 128/69 97 01/05/21 03:17 36.6 C 111 H 18 148/79 H 96 01/05/21 02:55 36.7 C 115 H 18 150/81 H 96 Weight: Weight 01/03/21 01/04/21 01/05/21 23:59 23:59 23:59 Weight (kg) 109 kg Intake & Output: Intake and Output Totals x24h 01/03/21 01/04/21 01/05/21 23:59 23:59 23:59 Intake Total 200 Output Total 450 Balance -250 - Lab Results Lab Results: 01/05/21 04:54 01/04/21 22:32 Other Lab Results: Lab Results x24hrs 01/05/21 01/04/21 01/04/21 Range/Units 04:54 22:32 22:32 WBC 13.4 H (4.8-10.8) x10^3/uL RBC 4.29 L (4.70-6.10) 10^6/uL Hgb 12.3 L (14.0-18.0) g/dL Hct 36.6 L (42.0-52.0) % MCV 85.3 (80.0-94.0) fL MCH 28.7 (27.0-31.0) pg MCHC 33.6 (32.0-36.0) g/dL RDW 13.2 (12.0-15.0) % Plt Count 226 (130-450) 10^3/uL MPV 10.8 (7.4-11.4) fL Neut # (Auto) Not Reportable (1.5-6.6) 10^3/uL Lymph # (Auto) Not Reportable (1.5-3.5) 10^3/uL [place] # (Auto) Not Reportable (0.0-1.0) 10^3/uL Eos # (Auto) Not Reportable (0.0-0.7) 10^3/uL Baso # (Auto) Not Reportable (0.0-0.1) 10^3/uL Absolute Nucleated RBC Not Reportable x10^3/uL Total Counted 100 Band Neuts % (Manual) 2 (0 - 10) % Abnorm Lymph % (Manual) 0 % Nucleated RBC % Not Reportable /100WBC Neutrophils # (Manual) 11.3 H (1.5-6.6) 10^3/uL Lymphocytes # (Manual) 1.2 L (1.5-3.5) 10^3/uL Monocytes # (Manual) 0.9 (0.0-1.0) 10^3/uL Eosinophils # (Manual) 0.0 (0-0.7) 10^3/uL Basophils # (Manual) 0.0 (0-0.1) 10^3/uL Differential Comment MANUAL DIFFERENTIAL Platelet Estimate NORMAL (130-450,000) (NORMAL) RBC Morph Micro Appear NORMAL APPEARANCE (NORMAL) PT 13.4 H (9.9-12.6) secs INR 1.2 (0.8-1.2) Sodium 133 L (135-145) mmol/L Potassium 4.0 (3.5-5.0) mmol/L Chloride 97 L (101-111) mmol/L Carbon Dioxide 21 (21-32) mmol/L Anion Gap 15.0 H (6-13) BUN 17 (6-20) mg/dL Creatinine 0.9 (0.6-1.2) mg/dL Estimated GFR (MDRD) 101 (>89) Glucose 223 H (70-100) mg/dL POC Whole Bld Glucose (70 - 100) mg/dL Calcium 8.9 (8.5-10.3) mg/dL 01/04/21 01/04/21 Range/Units 22:32 11:24 WBC 18.5 H (4.8-10.8) x10^3/uL RBC 4.74 (4.70-6.10) 10^6/uL Hgb 13.7 L (14.0-18.0) g/dL Hct 41.0 L (42.0-52.0) % MCV 86.5 (80.0-94.0) fL MCH 28.9 (27.0-31.0) pg MCHC 33.4 (32.0-36.0) g/dL RDW 13.2 (12.0-15.0) % Plt Count 262 (130-450) 10^3/uL MPV 11.1 (7.4-11.4) fL Neut # (Auto) 16.5 H (1.5-6.6) 10^3/uL Lymph # (Auto) 0.9 L (1.5-3.5) 10^3/uL [place] # (Auto) 0.9 (0.0-1.0) 10^3/uL Eos # (Auto) 0.0 (0.0-0.7) 10^3/uL Baso # (Auto) 0.0 (0.0-0.1) 10^3/uL Absolute Nucleated RBC 0.00 x10^3/uL Total Counted Band Neuts % (Manual) (0 - 10) % Abnorm Lymph % (Manual) % Nucleated RBC % 0.0 /100WBC Neutrophils # (Manual) (1.5-6.6) 10^3/uL Lymphocytes # (Manual) (1.5-3.5) 10^3/uL Monocytes # (Manual) (0.0-1.0) 10^3/uL Eosinophils # (Manual) (0-0.7) 10^3/uL Basophils # (Manual) (0-0.1) 10^3/uL Differential Comment Platelet Estimate (NORMAL) RBC Morph Micro Appear (NORMAL) PT (9.9-12.6) secs INR (0.8-1.2) Sodium (135-145) mmol/L Potassium (3.5-5.0) mmol/L Chloride (101-111) mmol/L Carbon Dioxide (21-32) mmol/L Anion Gap (6-13) BUN (6-20) mg/dL Creatinine (0.6-1.2) mg/dL Estimated GFR (MDRD) (>89) Glucose (70-100) mg/dL POC Whole Bld Glucose 95 (70 - 100) mg/dL Calcium (8.5-10.3) mg/dL - Current Medications Current Medications: Current Medications Generic Name Dose Route Start Last Admin Trade Name Freq PRN Reason Stop Dose Admin Acetaminophen 650 mg 01/04/21 21:41 01/05/21 06:52 Acetaminophen 325 Mg Tablet PO 650 mg Q4HR PRN Administration Pain or Fever > 38C (100.4F) Ondansetron HCl 4 mg 01/04/21 21:42 01/05/21 08:09 Ondansetron Odt 4 Mg Tablet TL 4 mg Q6HR PRN Administration Nausea / Vomiting Oxycodone HCl 5 mg 01/04/21 21:41 01/05/21 08:09 Oxycodone 5 Mg Tablet PO 5 mg Q4HR PRN Administration PAIN ABX Reporting Has patient been on IV antibiotics over the past 48 hours?: Yes Impression/Plan - Problem List Problem List: Patient is a 25-year-old male who underwent left knee ACL reconstruction with quad tendon graft and left lateral meniscus repair on 01/04/[address] Julio Lopez [facility]. After operation while still in OR patient had a straight urinary catheter administered and was found to have jonathan blood in the urine. Upon awakening from anesthesia patient was reporting left groin pain, not complaining of left knee pain.. Patient was admitted for observation by Dr Julio Swenson with comanagement by hospitalist to monitor hematuria. After catheter was removed patient groin pain improved with no complaints today on 01/05/2021 or postop day 1. Repeat urinary voiding has revealed no blood so far.Repeat urinalysis and if no hematuria or groin pain patient is cleared by orthopedic service to be discharged home Pending hospitalist consultation.
--- NOTE | 2021-01-05 08:35 | Discharge Plan ---
Discharge Plan Problem Reviewed?: Yes Disposition: Home, Self Care Condition: Good Prescriptions: oxyCODONE [Roxicodone] 5 mg PO Q4-6H #20 tablet Activity Restrictions: Nonweightbearing/toe-touc Shower Restrictions: Yes Driving Restrictions: Yes (Do not drive) Assistance Devices: Crutches (Crutches ordered patient familiar with these) Weight Bearing: Toe Touch Plan of Treatment: Patient is a 25-year-old male status post day 1 left ACL reconstruction with quad tendon graft and left lateral meniscus repair. Patient had one-time incident of hematuria suspect traumatic catheter was brought in for observation given saline since had clear urine. Patient to monitor for any urine blood. Patient has associated groin pain that was relieved after catheter removal. Patient will monitor groin pain. Patient is left reconstructed knee he can have free range of movement movement in his Hinged knee brace to 90 degrees of flexion. Patient is nonweightbearing/toe-touch weightbearing for balance. Patient can ice and elevate the knee as needed along with taking Tylenol scheduled for pain and use 5 mg oxycodone for breakthrough pain. Follow-up postoperative with orthopedics. Patient has been prescribed 5 mg of Coumadin for DVT prophylaxis patient is to take 5 mg of Coumadin once a day and to follow-up with routine lab draws to keep INR mild pain at 1.5-2.0 Target range for 30 days of anticoagulation. Patient is allergic to NSAIDs and there is factor V Leiden positive in the family, patient has not been confirmed to have factor V Leiden. No Smoking: If you smoke, Please STOP! Call for help. Follow-up with: Delroy Solis MD [Primary Care Provider] -
[2021-01-05 11:16] VITALS: BP 135/82
== END 2021-01-05 11:25 | disposition home or self-care (01) ==
LOC: SDS 10:51 → OBS 22:25 → SDS 01-05 11:25
PROVIDERS: ATTEND Orthopaedic Surgery
PROC: 0MRP47Z Replacement of Left Knee Bursa and Ligament with Autologous Tissue Substitute, Percutaneous Endoscopic Approach (ICD-10-PCS; principal; 2021-01-04 12:00)
DX: S83.512A Sprain of anterior cruciate ligament of left knee, initial encounter (principal); S83.282A Other tear of lateral meniscus, current injury, left knee, initial encounter; Y93.01 Activity, walking, marching and hiking; R31.9 Hematuria, unspecified; E66.9 Obesity, unspecified; F31.81 Bipolar II disorder; G89.29 Other chronic pain; M25.552 Pain in left hip; Z68.34 Body mass index [BMI] 34.0-34.9, adult; Z72.89 Other problems related to lifestyle; H54.7 Unspecified visual loss; Z87.891 Personal history of nicotine dependence
CPT/HCPCS: 29881; 29888; 36415; 80048; 85025; 85610; A9270; C1713; J0131; J0690; J1170; J7120; Q0162; 82550

== ENCOUNTER 2021-03-05 21:26 | Emergency (ER) | payer MEDICAID ==
--- NOTE | 2021-03-05 22:53 | ED Physician Documentation ---
History of Present Illness - Stated complaint Stated Complaint: LEFT KNEE POST OP PX - Chief complaint Chief Complaint: Ext Problem - History obtained from History obtained from: Patient - History of Present Illness Timing: How many days ago (3) Pain level max: 0 Pain level now: 0 Improved by: nothing Worsened by: no exacerbating factors - Additonal information Additional information: patient had surgery on his left knee two months ago. He presents tonight co mplaining of three days of burning sensation to his left knee which radiates to his proximal thigh anteriorly Review of Systems Constitutional: reports: Reviewed and negative Cardiac: denies: Chest pain / pressure, Pedal edema, Calf pain Respiratory: denies: Dyspnea Skin: denies: Rash Musculoskeletal: denies: Extremity pain, Extremity swelling Neurologic: denies: Focal weakness, Numbness PD PAST MEDICAL HISTORY - Past Medical History Past Medical History: Yes Cardiovascular: None Respiratory: Asthma Neuro: None Endocrine/Autoimmune: None GI: GERD : None HEENT: Chronic vision loss Psych: Depression, Anxiety Musculoskeletal: Chronic back pain Derm: None - Past Surgical History Past Surgical History: Yes Ortho: ACL reconstruction, Arthroscopic surgery - Present Medications Home Medications: Ambulatory Orders Medication Instructions Recorded Confirmed oxyCODONE/ACET 5/325 [Percocet 5 1 each PO Q4-6H PRN #14 tablet 03/05/21 mg/325 mg] - Allergies Allergies/Adverse Reactions: Allergies Allergy/AdvReac Type Severity Reaction Status Date / Time NSAIDS (Non-Steroidal Allergy Anaphylaxis Verified 03/05/21 21:36 Anti-Inflamma - Social History Does the pt smoke?: No Smoking Status: Never smoker Does the pt drink ETOH?: Yes Does the pt have substance abuse?: No - Immunizations Immunizations are current?: Yes - POLST Patient has POLST: No PD ED PE NORMAL - Vitals Vital signs reviewed: Yes - General General: Alert and oriented X 3, No acute distress, Well developed/nourished - Respiratory Respiratory: No respiratory distress, Clear bilaterally - Derm Derm: Normal color, Warm and dry, No rash - Extremities Extremities: No deformity, No tenderness to palpate, No edema Results - Vitals Vitals: Oxygen O2 Source Room air PD MEDICAL DECISION MAKING - ED course Complexity details: considered differential, d/w patient ED course: patient denies jonathan pain, he only complains of a burning sensation of his left knee which radiates to the proximal anterior thigh on the left. He had knee surgery two months ago on the left knee. Hes been wearing a brace daily. Examination of the left knee is unremarkable. There is no erythema, no significant swelling. There is no tenderness to palpation. There is no rash. the cause of the symptoms is unclear and emergent testing is not indicated at this time. Emergent testing is unlikely to reveal cause of symptoms or suggest a specific treatment. we discussed the possibility of the brace causing irritation, he says he has other braces at home will try a different one. Departure - Departure Disposition: 01 Home, Self Care Clinical Impression: Knee pain, left Condition: Good Instructions: ED Knee Pain [facility] Follow-Up: Julio Swenson MD [Primary Care Provider] - Within 3 Days Prescriptions: oxyCODONE/ACET 5/325 [Percocet 5 mg/325 mg] 1 each PO Q4-6H PRN #14 tablet PRN Reason: Pain Discharge Date/Time: 03/05/21 23:19
[2021-03-05] MEDS ORDERED: oxyCODONE/ACET 5/325 Prepack 4 PO STA (23:08)
[2021-03-05 23:19] VITALS: BP 142/79
== END 2021-03-05 23:19 | disposition home or self-care (01) ==
LOC: ED 21:26
DX: M25.562 Pain in left knee (principal); M79.652 Pain in left thigh; Z98.890 Other specified postprocedural states
CPT/HCPCS: 99282; 99283

== ENCOUNTER 2022-01-19 20:42 | Emergency (ER) | payer MEDICAID ==
[2022-01-19] MEDS ORDERED: ACETAMINOPHEN 325 MG TABLET PO STA (20:59)
[2022-01-19] MEDS ORDERED: LIDOCAINE PATCH 5% TOP STA (20:59)
--- NOTE | 2022-01-19 21:08 | ED Physician Documentation ---
PD HPI LOWER EXT INJURY - Stated complaint Stated Complaint: RT KNEE INJ - Chief complaint Chief Complaint: Trauma Ext - History obtained from History obtained from: Patient - Additional information Additional information: Patient is a 26-year-old male with a history of chronic right knee pain presenti for evaluation of worsening knee pain after a fall this evening. [place] and slipped on something wet on the floor and landed on his right knee. He has been able to ambulate but with pain. He did not hear a pop or snap.He reports pain is behind right knee and Is sharp. Pain is worse with movement and better at rest. He has not taken anything for this pain. He does have a history of knee surgery to the left but no previous repair to the right. He did not sustain any other injuries.He denies that his knee was bothering him prior to the fall. Review of Systems Constitutional: denies: Fever Nose: denies: Congestion Cardiac: denies: Chest pain / pressure, Palpitations Respiratory: denies: Dyspnea, Cough GI: denies: Abdominal Pain, Nausea, Vomiting : denies: Dysuria Skin: denies: Rash Musculoskeletal: reports: Joint pain Neurologic: denies: Headache, Head injury PD PAST MEDICAL HISTORY - Past Medical History Past Medical History: Yes Cardiovascular: None Respiratory: Asthma Neuro: None Endocrine/Autoimmune: None GI: GERD : None HEENT: Chronic vision loss Psych: Depression, Anxiety Musculoskeletal: Chronic back pain Derm: None - Past Surgical History Past Surgical History: Yes Ortho: ACL reconstruction, Arthroscopic surgery - Present Medications Home Medications: Ambulatory Orders Medication Instructions Recorded Confirmed No Known Home Medications 01/19/22 01/19/22 - Allergies Allergies/Adverse Reactions: Allergies Allergy/AdvReac Type Severity Reaction Status Date / Time NSAIDS (Non-Steroidal Allergy Anaphylaxis Verified 01/19/22 20:48 Anti-Inflamma - Social History Does the pt smoke?: No Smoking Status: Never smoker Does the pt drink ETOH?: Yes Does the pt have substance abuse?: No - Immunizations Immunizations are current?: Yes - POLST Patient has POLST: No PD ED PE NORMAL - General General: Alert and oriented X 3, No acute distress, Well developed/nourished - HEENT HEENT: Atraumatic, Moist mucous membranes - Neck Neck: Supple, no meningeal sign - Cardiac Cardiac: RRR, No murmur, Strong equal pulses - Respiratory Respiratory: No respiratory distress, Clear bilaterally - Abdomen Abdomen: Normal bowel sounds, Soft, Non tender - Derm Derm: Normal color, Warm and dry - Extremities Extremities: No deformity, Other (Full range of motion of her right knee with mild pain, no pain on range of motion of hip or ankle, intact distal pulses, normal strength and sensation, no Instability noted with varus or valgus stress or anterior and posterior stress) PD ED PE EXPANDED - Extremities NASEEM LE visual: 1 - tenderness Results - Vitals Vitals: Vital Signs - 24 hr 01/19/22 01/19/22 20:44 22:09 Temperature 36.3 C L Heart Rate 95 86 Respiratory 18 18 Rate Blood Pressure 121/75 151/96 H O2 Saturation 97 100 Oxygen O2 Source Room air PD MEDICAL DECISION MAKING - ED course Complexity details: reviewed results, d/w patient ED course: Patient declined knee immobilizer as he has 1 at home. He is agreeable to crutches. Patient with right knee pain after trauma. Mechanism does not suggest knee dislocation. Neurovascularly intact. No lacerations.X-rays negative for fracture or dislocation. Patient has knee brace with him and was given crutches. Counseled on supportive care. Patient is aware of need for follow-up should the pain not improve. Departure - Departure Disposition: 01 Home, Self Care Clinical Impression: Knee injury Qualifiers: Encounter type: initial encounter Laterality: right Qualified Code(s): S89.91XA - Unspecified injury of right lower leg, initial encounter Condition: Stable Instructions: ED Knee Pain [facility] Comments: You have been evaluated after an injury to your right knee. Your x-ray does not show a broken or out of place bone. At this time, I recommend continuing with supportive care such as using a knee immobilizer brace and crutches as needed for pain, Tylenol as needed for pain, ice, rest and elevating your leg. If your pain is not improving then you should follow-up with your primary care doctor in a week. If you have new or worsening pain, swelling, weakness or other concerns please return to the emergency department. Forms: Activity restrictions Discharge Date/Time: 01/19/22 22:11
--- NOTE | 2022-01-19 21:42 | XRAY Report ---
PROCEDURE: Knee 3 View RT INDICATIONS: fall/pain TECHNIQUE: 4 views of the right knee(s) were acquired. COMPARISON: None. FINDINGS: Bones: No fractures or dislocations. No suspicious bony lesions. Soft tissues: No joint effusion. No suspicious soft tissue calcifications. IMPRESSION: Right knee without acute fracture or dislocation. If there is persistent clinical concern for a radiographically occult fracture, recommend immobilizat ion and repeat imaging in 10 to 14 days. Reviewed by: Jhonatan Rehman MD on 01/19/2022 9:41 PM PDT Approved by: Jhonatan Rehman MD on 01/19/2022 9:41 PM PDT Station ID: [id number]
[2022-01-19 22:10] VITALS: BP 151/96
== END 2022-01-19 22:11 | disposition home or self-care (01) ==
LOC: ED 20:42
DX: S89.91XA Unspecified injury of right lower leg, initial encounter (principal); W01.0XXA Fall on same level from slipping, tripping and stumbling without subsequent striking against object, initial encounter; Y92.39 Other specified sports and athletic area as the place of occurrence of the external cause
CPT/HCPCS: 73562; 99282; 99283; A9270